=== PATIENT | female | born 1945 | race Caucasian/White ===

== ENCOUNTER → 2019-05-12 | Outpatient (CLI) | payer MEDICARE, BC ==
--- NOTE | 2019-05-13 14:52 | MM ---
Reason for exam: screening (asymptomatic). Last mammogram was performed 3 years and 7 months ago. History: Patient is postmenopausal. Family history of breast cancer in maternal aunt. Cyst aspiration of the left breast. Cyst aspiration of the right breast. Took estrogen for 10 years. Took progesterone for 10 years. Physical Findings: A clinical breast exam by your physician is recommended on an annual basis and results should be correlated with mammographic findings. MG 3D Screening Mammo W/Cad Bilateral CC and MLO view(s) were taken. Prior study comparison: October 10, 2015, bilateral MG 3d screening mammo w/cad. May 16, 2014, bilateral MG screening mammo w CAD. The breast tissue is extremely dense which could obscure a lesion on mammography. Stable benign calcifications. There is no discrete abnormality. No significant changes when compared with prior studies. ASSESSMENT: Benign, BI-RAD 2 RECOMMENDATION: Routine screening mammogram of both breasts in 1 year.
== END | disposition home or self-care (01) ==
LOC: RADMAMWWP 10:21
PROVIDERS: ATTEND Family Medicine
DX: Z12.31 Encounter for screening mammogram for malignant neoplasm of breast (principal)
CPT/HCPCS: 77063; 77067

== ENCOUNTER → 2020-06-13 | Outpatient (CLI) | payer MEDICARE, BC ==
--- NOTE | 2020-06-13 15:18 | BD ---
EXAMINATION TYPE: Axial Bone Density DATE OF EXAM: 06/13/2020 COMPARISON: 02.20.2009 CLINICAL HISTORY: 74 YR OLD FEMALE.....ICD-10 CODE: M81.0 KNOWN OSTEOPOROSIS Height: 65 Weight: 152 FRAX RISK QUESTIONS: History of Fracture in Adulthood: YES RISK FACTORS HISTORY OF: HX OF RT ANKLE FX AND FINGERS AND TOES, >50 YRS OLD Family History of Osteoporosis: YES, MOTHER, NO HIP FX Active: YES Postmenopausal woman: YES, AT AGE 50 Take estrogen and/or progesterone medications: YES, FOR ABOUT 15 YRS Hyperparathyroidism: NO Adrenal Insufficiency: NO MEDICATIONS: Prednisone or other steroids: YES, FOR ASTHMA, ADVAIR AND SINGULAIR, PRO AIR, FOR MANY YRS Osteoporosis Medications: YES, IN THE PAST, FOSAMAX, ON IT FOR VERY LONG TIME Additional Medications: BP MEDS, REFLUX MEDS, STATIN FOR CHOLESTEROL, VIT D AND CALCIUM Additional History: HYPERTENSION, REFLUX, CHOLESTEROL, EXAM MEASUREMENTS: Bone mineral densitometry was performed using the [employer] System. Bone mineral density as measured about the Lumbar spine is: ----- L1-L4(G/cm2): 1.015 T Score Values are as follows: ----- L1: -1.8 ----- L2: -2.2 ----- L3: -1.4 ----- L4: -0.3 ----- L1-L4: -1.4 Bone mineral density has: Increased 0.2% SINCE STUDY OF 02.20.2009 Bone mineral density about the R hip (g/cm2): 0.749 Bone mineral density about the L hip (g/cm2): 0.861 T Score values are as follows: -----R Neck: -1.6 -----L Neck: -1.8 -----R Total: -2.1 -----L Total: -1.2 Bone mineral density has: Increased 4.5% SINCE STUDYOF 02.20.2009 FRAX%s: THERE IS A 27.6 % CHANCE FOR A MAJOR OSTEOPOROTIC FX AND A 6.3% FOR HIP......PROBABILITY FO R FX IN 10 YRS TIME IMPRESSION: Osteopenia (T Score between -2.5 and -1). There is slightly increased risk of fracture and the patient may be considered for treatment. Re-Screen 2-5 years. NOTE: T-SCORE=SD OF THE YOUNG ADULT MEAN.
== END | disposition home or self-care (01) ==
LOC: RADBDWWP 10:30
PROVIDERS: ATTEND Family Medicine
DX: M85.80 Other specified disorders of bone density and structure, unspecified site (principal)
CPT/HCPCS: 77080

== ENCOUNTER 2020-08-07 19:01 | Inpatient (IN) | payer MEDICARE, BC ==
[2020-08-07] MEDS ORDERED: SODIUM CHLORIDE 0.9% 500 ML 500 ML IV ONE (20:33)
[2020-08-07] MEDS ORDERED: DILTIAZEM DRIP BOLUS FROM BAG 1 MG SOLN IV ONE (20:34)
[2020-08-07] MEDS ORDERED: DILTIAZEM 125 MG in SODIUM CHLORIDE 0.9% 100 ML IV SCH (20:45)
--- NOTE | 2020-08-07 20:45 | ED ---
Dizziness HPI - General Chief Complaint: Dizziness Stated Complaint: High BP Time Seen by Provider: 08/07/20 20:20 Source: patient, RN notes reviewed Mode of arrival: wheelchair Limitations: no limitations - History of Present Illness Initial Comments: 74-year-old well-appearing white female patient presents with her sister complaining of sudden onset last night of "not feeling well". Patient states today she felt dizzy, clammy, with some abdominal cramping, but denies nausea vomiting diarrhea cough or fever. Patient states had first Covid vaccine 2 weeks ago Moderna. 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 Patient has a history of A. fib but is not on medication for patient states she has hyper pressure and is taking medication for that along with high cholesterol. She had a heart catheterization in April 2019 and again in 2019 with angioplasty. Patient states takes baby aspirin a day but is not taking any antiarrhythmic or blood thinner. MD Complaint: dizziness -: days(s) (1) Timing: sudden onset, intermittent Description: other ("didn't feel well" dizzy, abdominal cramping) History of Same: No History of Trauma: No Severity: moderate Improves With: rest Worsens With: nothing Associated Symptoms: other (abd cramping) - Related Data Home Medications Medication Instructions Recorded Confirmed Aspirin [Adult Low Dose Aspirin EC] 81 mg PO HS 08/07/20 08/07/20 Calcium/B3 (Unknown Strength) 1 tab PO HS 08/07/20 08/07/20 Glucosamine Sulfate 500 mg PO DAILY 08/07/20 08/07/20 Montelukast Sodium [Singulair] 10 mg PO HS 08/07/20 08/07/20 Multivitamins, Thera [Multivitamin 1 tab PO DAILY 08/07/20 08/07/20 (formulary)] Omeprazole [PriLOSEC] 10 mg PO DAILY 08/07/20 08/07/20 Rosuvastatin Calcium [Crestor] 20 mg PO HS 08/07/20 08/07/20 Valsartan/Hydrochlorothiazide 1 tab PO HS 08/07/20 08/07/20 [Valsartan-Hctz 160-12.5 mg Tab] Allergies Allergy/AdvReac Type Severity Reaction Status Date / Time No Known Allergies Allergy Verified 08/07/20 21:55 Review of Systems ROS Statement: Those systems with pertinent positive or pertinent negative responses have been documented in the HPI. ROS Other: All systems not noted in ROS Statement are negative. Past Medical History Past Medical History: Atrial Fibrillation, Hyperlipidemia, Hypertension History of Any Multi-Drug Resistant Organisms: None Reported Past Surgical History: Heart Catheterization Additional Past Surgical History / Comment(s): carpal tunnel Past Psychological History: Anxiety Smoking Status: Former smoker Past Alcohol Use History: Occasional Past Drug Use History: None Reported General Exam - General Exam Comments Initial Comments: Alert and active female, blood pressure 107/64 with heart rate of 103 irregular A. fib, oxygen saturation 97% room air, respiratory rate of 20. Patient skin warm and dry supple no lymphadenopathy lungs clear to auscultation heart rate irregular radial and pedal pulses are present, abdomen soft and nontender, no spinal pain. Moves all extremities with good strength. Patient alert and oriented 4. Limitations: no limitations General appearance: alert, in no apparent distress Head exam: Present: atraumatic, normocephalic, normal inspection Eye exam: Present: normal appearance, PERRL, EOMI. Absent: scleral icterus, conjunctival injection, periorbital swelling ENT exam: Present: normal exam, mucous membranes moist Neck exam: Present: normal inspection. Absent: tenderness, meningismus, lymphadenopathy Respiratory exam: Present: normal lung sounds bilaterally. Absent: respiratory distress, wheezes, rales, rhonchi, stridor Cardiovascular Exam: Present: tachycardia (a fib with rvr 150-103), irregular rhythm. Absent: normal rhythm, JVD GI/Abdominal exam: Present: soft, normal bowel sounds. Absent: distended, tenderness Back exam: Present: normal inspection. Absent: tenderness, vertebral tenderness Psychiatric exam: Present: normal affect, normal mood Skin exam: Present: warm, dry, intact, normal color. Absent: rash Course Vital Signs 08/07/20 08/07/20 08/07/20 19:46 21:01 21:58 Temperature 97.9 F Pulse Rate 103 H 124 H 114 H Respiratory 20 18 18 Rate Blood Pressure 107/64 141/123 107/84 O2 Sat by Pulse 97 100 99 Oximetry Medical Decision Making - Medical Decision Making Case discussed with Dr. Choudhury, patient to be admitted to Dr. Dhaliwal with Dr. Bruno on consult for atrial fibrillation with rapid ventricular rate. Patient on Cardizem drip. Patient denies any chest pain, dizziness or shortness of breath at this time. Atrial fibrillation with Heart rate 109. - Lab Data Result diagrams: 08/07/20 21:01 08/07/20 21: Lab Results 08/07/20 08/07/20 08/07/20 Range/Units 21: 21: 21:01 WBC 7.0 (3.8-10.6) k/uL RBC 4.57 (3.80-5.40) m/uL Hgb 14.6 (11.4-16.0) gm/dL Hct 43.7 (34.0-46.0) % MCV 95.8 (80.0-100.0) fL MCH 31.9 (25.0-35.0) pg MCHC 33.3 (31.0-37.0) g/dL RDW 12.6 (11.5-15.5) % Plt Count 311 (150-450) k/uL MPV 6.9 Neutrophils % 51 % Lymphocytes % 34 % Monocytes % 9 % Eosinophils % 3 % Basophils % 1 % Neutrophils # 3.6 (1.3-7.7) k/uL Lymphocytes # 2.4 (1.0-4.8) k/uL Monocytes # 0.7 (0-1.0) k/uL Eosinophils # 0.2 (0-0.7) k/uL Basophils # 0.1 (0-0.2) k/uL PT 10.3 (9.0-12.0) sec INR 1.0 (<1.2) APTT 24.9 (22.0-30.0) sec Sodium 132 L (137-145) mmol/L Potassium 4.5 (3.5-5.1) mmol/L Chloride 98 (98-107) mmol/L Carbon Dioxide 26 (22-30) mmol/L Anion Gap 8 mmol/L BUN 18 H (7-17) mg/dL Creatinine 0.97 (0.52-1.04) mg/dL Est GFR (CKD-EPI)AfAm 68 (>60 ml/min/1.73 sqM) Est GFR (CKD-EPI)NonAf 59 (>60 ml/min/1.73 sqM) Glucose 107 H (74-99) mg/dL Calcium 9.7 (8.4-10.2) mg/dL Magnesium 2.1 (1.6-2.3) mg/dL Total Bilirubin 0.5 (0.2-1.3) mg/dL AST 38 H (14-36) U/L ALT 30 (4-34) U/L Alkaline Phosphatase 77 (38-126) U/L Troponin I (0.000-0.034) ng/mL Total Protein 7.1 (6.3-8.2) g/dL Albumin 4.6 (3.5-5.0) g/dL Coronavirus (PCR) (Not Detectd) 08/07/20 08/07/20 Range/Units 21:01 21:04 WBC (3.8-10.6) k/uL RBC (3.80-5.40) m/uL Hgb (11.4-16.0) gm/dL Hct (34.0-46.0) % MCV (80.0-100.0) fL MCH (25.0-35.0) pg MCHC (31.0-37.0) g/dL RDW (11.5-15.5) % Plt Count (150-450) k/uL MPV Neutrophils % % Lymphocytes % % Monocytes % % Eosinophils % % Basophils % % Neutrophils # (1.3-7.7) k/uL Lymphocytes # (1.0-4.8) k/uL Monocytes # (0-1.0) k/uL Eosinophils # (0-0.7) k/uL Basophils # (0-0.2) k/uL PT (9.0-12.0) sec INR (<1.2) APTT (22.0-30.0) sec Sodium (137-145) mmol/L Potassium (3.5-5.1) mmol/L Chloride (98-107) mmol/L Carbon Dioxide (22-30) mmol/L Anion Gap mmol/L BUN (7-17) mg/dL Creatinine (0.52-1.04) mg/dL Est GFR (CKD-EPI)AfAm (>60 ml/min/1.73 sqM) Est GFR (CKD-EPI)NonAf (>60 ml/min/1.73 sqM) Glucose (74-99) mg/dL Calcium (8.4-10.2) mg/dL Magnesium (1.6-2.3) mg/dL Total Bilirubin (0.2-1.3) mg/dL AST (14-36) U/L ALT (4-34) U/L Alkaline Phosphatase (38-126) U/L Troponin I <0.012 (0.000-0.034) ng/mL Total Protein (6.3-8.2) g/dL Albumin (3.5-5.0) g/dL Coronavirus (PCR) Not Detected (Not Detectd) - EKG Data -: EKG Interpreted by Me (with Dr Choudhury) EKG Comments: EKG at 1956 shows A. fib with RVR with a ventricular rate of 139, QRS of 0.90 with QTc of 462 ms Interpretation: other (afib with RVR 139) Disposition Clinical Impression: Atrial fibrillation with rapid ventricular response Disposition: ADMITTED IP TO THIS HOSP Condition: Good Is patient prescribed a controlled substance at d/c from ED?: No Referrals: Mayito Abrams DO [Primary Care Provider] - 1-2 days Decision Date: 08/07/20 Decision Time: 22:28
[2020-08-07 21:03] VITALS: RESP 18
[2020-08-07 21:14] LABS: Basophils # (A) 0.1 k/uL (0-0.2); Basophils % (A) 1 %; Eosinophils # (A) 0.2 k/uL (0-0.7); Eosinophils % (A) 3 %; HCT 43.7 % (34.0-46.0); HGB 14.6 gm/dL (11.4-16.0); Lymphocytes # (A) 2.4 k/uL (1.0-4.8); Lymphocytes % (A) 34 %; MCH 31.9 pg (25.0-35.0); MCHC 33.3 g/dL (31.0-37.0); MCV 95.8 fL (80.0-100.0); Mean Platelet Volume 6.9; Monocytes # (A) 0.7 k/uL (0-1.0); Monocytes % (A) 9 %; Neutrophils # (A) 3.6 k/uL (1.3-7.7); Neutrophils % (A) 51 %; Platelet Count 311 k/uL (150-450); RBC 4.57 m/uL (3.80-5.40); RDW 12.6 % (11.5-15.5)
[2020-08-07 21:24] LABS: Albumin 4.6 g/dL (3.5-5.0); Calcium 9.7 mg/dL (8.4-10.2); Magnesium 2.1 mg/dL (1.6-2.3); Potassium 4.5 mmol/L (3.5-5.1); Total Bilirubin 0.5 mg/dL (0.2-1.3); Total Protein 7.1 g/dL (6.3-8.2)
[2020-08-07 21:26] LABS: Partial Thromboplastin Time 24.9 sec (22.0-30.0); Prothrombin Time 10.3 sec (9.0-12.0)
--- NOTE | 2020-08-07 21:45 | XR ---
EXAMINATION TYPE: XR chest 2V DATE OF EXAM: 08/07/2020 COMPARISON: NONE HISTORY: Hypotension TECHNIQUE: 2 views FINDINGS: Heart and mediastinum are normal. Lungs are clear. Diaphragm is normal. Bony thorax appears normal. IMPRESSION: Normal chest.
[2020-08-07] MEDS ORDERED: ACETAMINOPHEN TAB 325 MG TAB PO PRN (22:19)
[2020-08-07] MEDS ORDERED: NALOXONE 0.4 MG/ML 1 ML VIAL IV PRN (22:19)
[2020-08-07] MEDS ORDERED: HEPARIN SODIUM,PORCINE 5,000 UNIT/ML 1 ML VIAL IV PRN (22:30)
[2020-08-07] MEDS ORDERED: HEPARIN SODIUM,PORCINE 5,000 UNIT/ML 1 ML VIAL IV ONE (22:30)
[2020-08-07] MEDS ORDERED: HEPARIN SOD,PORK IN 0.45% NACL 25,000 UNIT in 0.45% NACL 1 250ML.BAG IV SCH (22:30)
[2020-08-08 05:39] LABS: Basophils % (A) 1 %; Eosinophils # (A) 0.2 k/uL (0-0.7); Eosinophils % (A) 3 %; HCT 39.6 % (34.0-46.0); HGB 13.3 gm/dL (11.4-16.0); Lymphocytes % (A) 51 %; MCH 32.3 pg (25.0-35.0); MCHC 33.5 g/dL (31.0-37.0); MCV 96.3 fL (80.0-100.0); Mean Platelet Volume 6.9; Monocytes # (A) 0.5 k/uL (0-1.0); Monocytes % (A) 8 %; Neutrophils # (A) 2.1 k/uL (1.3-7.7); Neutrophils % (A) 35 %; Platelet Count 297 k/uL (150-450); RBC 4.12 m/uL (3.80-5.40); RDW 12.6 % (11.5-15.5); WBC 5.9 k/uL (3.8-10.6)
[2020-08-08] MEDS ORDERED: METOPROLOL TARTRATE 25 MG TAB PO SCH (09:45)
[2020-08-08 09:47] VITALS: TEMP 98.6
[2020-08-08 11:38] VITALS: BP 99/55; PULSE 58
[2020-08-08] MEDS ORDERED: APIXABAN 5 MG TAB PO SCH (12:00)
--- NOTE | 2020-08-08 14:27 | P.HPIM ---
History of Present Illness H&P Date: 08/08/20 HISTORY AND PHYSICAL AND DISCHARGE SUMMARY: HISTORY OF PRESENT ILLNESS This is a 74-year-old female patient of Dr. Abrams and Dr. Washington her fisher eel spear with past medical history of hypertension, hyperlipidemia, gastroesophageal reflux disease, peripheral vascular disease with previous angioplasty. Patient states that she developed a choking sensation was clammy and dizzy and nauseated. Patient thought she was going to pass out. She denies any shortness of breath. No chest pain. She called her sister and she was brought into [facility] emergency center for evaluation. Patient states that she has had atrial fibrillation in the past was not on any anticoagulation. She states she had a stress test done 6 months ago which was okay. Patient was found to be afebrile, heart rate 124, blood pressure 107/64, pulse ox 97%. CBC was unremarkable. Sodium 132, potassium 4.5, chloride 98, CO2 26, BUN 18 and creatinine 0.97. Blood sugar 107. AST 38. Coronavirus PCR not detected. Troponin is negative. EKG is atrial fibrillation with RVR at 139 bpm. Patient was admitted and seen by fisher eel spear. Patient was started on eliquis and metoprolol. Patient was cleared for discharge home. Patient will follow-up with her primary fisher eel spear. REVIEW OF SYSTEMS Constitutional: No fever, no chills, no night sweats. No weight change. No weakness, fatigue or lethargy. No daytime sleepiness. EENT: No headache. No blurred vision or double vision, no loss of vision. No loss of Hearing, no ringing in the ears, no dizziness. No nasal drainage or congestion. No epistaxis. No sore throat. Lungs: No shortness of breath, cough, no sputum production. No wheezing. Cardiovascular: No chest pain, no lower extremity edema. No palpitations. No paroxysmal nocturnal dyspnea. No orthopnea. Reports dizziness. No syncopal episodes. Abdominal: No abdominal pain. Reports nausea, no vomiting. No diarrhea. No constipation. No bloody or tarry stools.. No loss of appetite. Genitourinary: No dysuria, increased frequency, urgency. No urinary retention. Musculoskeletal: No myalgias. No muscle weakness, no gait dysfunction, no frequent falls. No back pain. No neck pain. Integumentary: No wounds, no lesions. No rash or pruritus. No unusual bruising. No change in hair or nails. Neurologic: No aphasia. No facial droop. No change in mentation. No head injury. No headache. No paralysis. No paresthesia. Psychiatric: No depression. No anxiety. No mood swings. Endocrine: No abnormal blood sugars. No weight change. No excessive sweating or thirst. No cold intolerance. SOCIAL HISTORY Patient is a lifelong nonsmoker. She drink alcohol occasionally. She denies any marijuana or illicit drug use. She is retired as an commercial management accountant and lives at home with her . FAMILY HISTORY Mother at age 92 from old age. Father at age 60 from lymphoma. Patient is a total of 8 siblings and one has from lung cancer and one from depression. Patient is 3 children with no major medical problems. PHYSICAL EXAMINATION Gen: This is a 74-year-old female. Patient is resting on stretcher in the ER she would appears to be comfortable. No acute distress noted. HEENT: Head is atraumatic, normocephalic. Pupils equal, round. Sclerae is anicteric. NECK: Supple. No JVD. No lymphadenopathy. No thyromegaly. LUNGS: Clear to auscultation. No wheezes or rhonchi. No intercostal retractions. HEART: Irregular rate and rhythm. No murmur. ABDOMEN: Soft. Bowel sounds are present. No masses. No tenderness. EXTREMITIES: No pedal edema. No calf tenderness. Dorsalis pedis palpable bilaterally. NEUROLOGICAL: Patient is awake, alert and oriented x3. Cranial nerves 2 through 12 are grossly intact. ASSESSMENT AND PLAN 1. A. fib with RVR, paroxysmal atrial fibrillation. Cardiology consult appreciated. Patient started on eliquis 5 mg twice daily and Lopressor 25 mg twice daily. 2. Hypertension. 3. Hyperlipidemia. 4. Mild intermittent asthma stable. 5. Gastroesophageal reflux disease. 6. Peripheral vascular disease. Patient will be admitted to the hospital for a 1 night stay. DISCHARGE PLAN Home. Discharge Medication List Aspirin [Adult Low Dose Aspirin EC] 81 mg PO HS 08/07/20 [History] Calcium/B3 (Unknown Strength) 1 tab PO HS 08/07/20 [History] Glucosamine Sulfate 500 mg PO DAILY 08/07/20 [History] Montelukast Sodium [Singulair] 10 mg PO HS 08/07/20 [History] Multivitamins, Thera [Multivitamin (formulary)] 1 tab PO DAILY 08/07/20 [History] Omeprazole [PriLOSEC] 10 mg PO DAILY 08/07/20 [History] Rosuvastatin Calcium [Crestor] 20 mg PO HS 08/07/20 [History] Valsartan/Hydrochlorothiazide [Valsartan-Hctz 160-12.5 mg Tab] 1 tab PO HS 08/07/20 [History] Apixaban [Eliquis] 5 mg PO BID #60 tab 08/08/20 [Rx] Metoprolol Tartrate [Lopressor] 25 mg PO BID #60 tab 08/08/20 [Rx] Impression and plan of care have been directed as dictated by the signing physician. Olga Guzman nurse practitioner acting as scribe for signing physician. Past Medical History Past Medical History: Atrial Fibrillation, Hyperlipidemia, Hypertension History of Any Multi-Drug Resistant Organisms: None Reported Past Surgical History: Heart Catheterization Additional Past Surgical History / Comment(s): heart cath 05/13 carpal tunnel Past Anesthesia/Blood Transfusion Reactions: No Reported Reaction Past Psychological History: Anxiety Smoking Status: Former smoker Past Alcohol Use History: Occasional Past Drug Use History: None Reported - Past Family History Mother Family Medical History: AFIB Medications and Allergies Home Medications Medication Instructions Recorded Confirmed Type Aspirin [Adult Low Dose Aspirin EC] 81 mg PO HS 08/07/20 08/07/20 History Calcium/B3 (Unknown Strength) 1 tab PO HS 08/07/20 08/07/20 History Glucosamine Sulfate 500 mg PO DAILY 08/07/20 08/07/20 History Montelukast Sodium [Singulair] 10 mg PO HS 08/07/20 08/07/20 History Multivitamins, Thera [Multivitamin 1 tab PO DAILY 08/07/20 08/07/20 History (formulary)] Omeprazole [PriLOSEC] 10 mg PO DAILY 08/07/20 08/07/20 History Rosuvastatin Calcium [Crestor] 20 mg PO HS 08/07/20 08/07/20 History Valsartan/Hydrochlorothiazide 1 tab PO HS 08/07/20 08/07/20 History [Valsartan-Hctz 160-12.5 mg Tab] Apixaban [Eliquis] 5 mg PO BID #60 tab 08/08/20 Rx Metoprolol Tartrate [Lopressor] 25 mg PO BID #60 tab 08/08/20 Rx Allergies Allergy/AdvReac Type Severity Reaction Status Date / Time No Known Allergies Allergy Verified 08/07/20 21:55 Physical Exam Vitals: Vital Signs Temp Pulse Pulse Resp BP BP Pulse Ox 08/08/20 09:30 98.6 F 62 18 126/68 99 08/08/20 04:00 96 18 111/66 99 08/07/20 23:21 97.5 F L 120 H 18 106/96 98 08/07/20 22:30 140 H 18 100 08/07/20 21:58 114 H 18 107/84 99 08/07/20 21:01 124 H 18 141/123 100 08/07/20 19:46 97.9 F 103 H 20 107/64 97 Intake and Output 08/07/20 08/08/20 08/08/20 22:59 06:59 14:59 Intake Total 7.75 44.99 Balance 7.75 44.99 Intake: Intake, IV Titration 7.75 44.99 Amount Diltiazem 125 mg In 7.75 Sodium Chloride 0.9% 100 ml @ 5 MG/HR 5 mls/hr IV .Q24H [facility] Rx#:[id number] Heparin Sod,Pork in 0.45% 44.99 NaCl 25,000 unit In 0.45 % NaCl 1 250ml.bag @ 12 UNITS/KG/HR 7.893 mls/hr IV .Q24H [facility] Rx#: [id number] Other: # Voids 2 Weight 65.771 kg 65.771 kg Results CBC & Chem 7: 08/08/20 05:20 08/07/20 21:01 Labs: Abnormal Lab Results - Last 24 Hours (Table) 08/07/20 08/08/20 Range/Units 21:01 05:20 APTT 66.8 H (22.0-30.0) sec Sodium 132 L (137-145) mmol/L BUN 18 H (7-17) mg/dL Glucose 107 H (74-99) mg/dL AST 38 H (14-36) U/L Thrombosis Risk Factor Assmnt - Choose All That Apply Any of the Below Risk Factors Present?: No Each Risk Factor Represents 2 Points: Age 61-74 years Each Risk Factor Represents 3 Points: History of DVT/PE Other congenital or acquired thrombophilia - If yes, enter type in comment: No Thrombosis Risk Factor Assessment Total Risk Factor Score: 5 Thrombosis Risk Factor Assessment Level: High Risk
--- NOTE | 2020-08-08 14:47 | P.CRDCN ---
History of Present Illness Consult date: 08/08/20 History of present illness: HISTORY OF PRESENT ILLNESS: This is a 74-year-old female with a past medical history significant for hypertension, hyperlipidemia, peripheral vascular disease, and atrial fibrillation. Patient follows with Dr. Ledesma]. We have been asked to see the patient in consultation for atrial fibrillation with RVR. Patient examined at the bedside in the extended care unit with Dr. Vieira. Patient initially presented to the hospital with a chief complaint of dizziness, lightheadedness, and nausea. Patient denies any of these symptoms at the time of examination. Initial EKG when patient presented to the hospital with A. fib with RVR. Patient was started on a Cardizem drip. She has since converted to sinus mechanism. IV Cardizem was discontinued and patient was started on a beta pamela. She denies chest pain or pressure. Denies shortness of breath. Patient reports a history of atrial fibrillation but was not on anticoagulation. She is unsure of the reason why. EKG reveals atrial fibrillation with RVR. Repeat EKG revealed sinus mechanism. Chest xray negative for acute process. Laboratory data: WBC 5.9. Hemoglobin 13.3. Platelet count 297. Sodium 132. Potassium 4.5. BUN 18. Creatinine 0.97. Magnesium 2.1. Current home cardiac medications include aspirin 81 mg daily, Crestor 20 mg daily, and valsartan-HCTZ 76938.5 mg daily REVIEW OF SYSTEMS: At the time of my exam: CONSTITUTIONAL: Denies fever or chills. HEENT: Denies blurred vision, vision changes, or eye pain. Denies hemoptysis CARDIOVASCULAR: Denies chest pain. Denies orthopnea. Denies PND. Denies pal pitations RESPIRATORY: Denies shortness of breath. GASTROINTESTINAL: Denies abdominal pain. Denies nausea or vomiting. HEMATOLOGIC: Denies bleeding disorders. GENITOURINARY: Denies any blood in urine. SKIN: Denies pruitis. Denies rash. PHYSICAL EXAM: VITAL SIGNS: Reviewed. GENERAL: Well-developed in no acute distress. HEENT: Head is normocephalic. Pupils are equal, round. Sclerae anicteric. Mucous membranes of the mouth are moist. Neck supple. No JVD or thyromegaly LUNGS: Respirations even and unlabored. Lungs essentially clear to auscultation bilaterally. HEART: Regular rate and rhythm. S1 and S2 heard. ABDOMEN: Soft. Nondistended. Nontender. EXTREMITIES: Normal range of motion. No clubbing or cyanosis. Peripheral pulses intact. No lower extremity edema NEUROLOGIC: Awake and alert. Oriented x 3. ASSESSMENT: Dizziness, resolved Paroxysmal atrial fibrillation with RVR, since converted to sinus mechanism Hypertension Hyperlipidemia Peripheral vascular disease Anxiety Former nicotine dependence PLAN: IV Cardizem has been discontinued Patient has been started on metoprolol 25 mg twice a day Continue additional home cardiac medications Discontinue aspirin Begin Eliquis 5 mg twice a day. Discontinue IV heparin Patient is stable for discharge home today from a cardiac perspective. She is to follow up outpatient with her bus greaser. Nurse practitioner note has been reviewed by physician. Signing provider agrees with the documented findings, assessment, and plan of care. Past Medical History Past Medical History: Atrial Fibrillation, Hyperlipidemia, Hypertension History of Any Multi-Drug Resistant Organisms: None Reported Past Surgical History: Heart Catheterization Additional Past Surgical History / Comment(s): heart cath 05/13 carpal tunnel Past Anesthesia/Blood Transfusion Reactions: No Reported Reaction Past Psychological History: Anxiety Smoking Status: Former smoker Past Alcohol Use History: Occasional Past Drug Use History: None Reported - Past Family History Mother Family Medical History: AFIB Medications and Allergies Home Medications Medication Instructions Recorded Confirmed Type Aspirin [Adult Low Dose Aspirin EC] 81 mg PO HS 08/07/20 08/07/20 History Calcium/B3 (Unknown Strength) 1 tab PO HS 08/07/20 08/07/20 History Glucosamine Sulfate 500 mg PO DAILY 08/07/20 08/07/20 History Montelukast Sodium [Singulair] 10 mg PO HS 08/07/20 08/07/20 History Multivitamins, Thera [Multivitamin 1 tab PO DAILY 08/07/20 08/07/20 History (formulary)] Omeprazole [PriLOSEC] 10 mg PO DAILY 08/07/20 08/07/20 History Rosuvastatin Calcium [Crestor] 20 mg PO HS 08/07/20 08/07/20 History Valsartan/Hydrochlorothiazide 1 tab PO HS 08/07/20 08/07/20 History [Valsartan-Hctz 160-12.5 mg Tab] Apixaban [Eliquis] 5 mg PO BID #60 tab 03/17/21 Rx Metoprolol Tartrate [Lopressor] 25 mg PO BID #60 tab 08/08/20 Rx Allergies Allergy/AdvReac Type Severity Reaction Status Date / Time No Known Allergies Allergy Verified 08/07/20 21:55 Physical Exam Vitals: Vital Signs Temp Pulse Pulse Resp BP BP Pulse Ox 08/08/20 11:25 58 L 18 99/55 98 08/08/20 09:30 98.6 F 62 18 126/68 99 08/08/20 04:00 96 18 111/66 99 08/07/20 23:21 97.5 F L 120 H 18 106/96 98 08/07/20 22:30 140 H 18 100 08/07/20 21:58 114 H 18 107/84 99 08/07/20 21:01 124 H 18 141/123 100 08/07/20 19:46 97.9 F 103 H 20 107/64 97 Intake and Output 08/07/20 08/08/20 08/08/20 22:59 06:59 14:59 Intake Total 7.75 44.99 Balance 7.75 44.99 Intake: Intake, IV Titration 7.75 44.99 Amount Diltiazem 125 mg In 7.75 Sodium Chloride 0.9% 100 ml @ 5 MG/HR 5 mls/hr IV .Q24H [facility] Rx#:[id number] Heparin Sod,Pork in 0.45% 44.99 NaCl 25,000 unit In 0.45 % NaCl 1 250ml.bag @ 12 UNITS/KG/HR 7.893 mls/hr IV .Q24H [facility] Rx#: [id number] Other: # Voids 2 Weight 65.771 kg 65.771 kg Results 08/08/20 05:20 08/07/20 21:01 Cardiac Enzymes 08/07/20 08/07/20 Range/Units 21:01 21:01 AST 38 H (14-36) U/L Troponin I <0.012 (0.000-0.034) ng/mL Coagulation 08/07/20 08/08/20 08/08/20 Range/Units 21:01 05:20 11:27 PT 10.3 (9.0-12.0) sec APTT 24.9 66.8 H 32.4 H (22.0-30.0) sec CBC 08/07/20 08/08/20 Range/Units 21:01 05:20 WBC 7.0 5.9 (3.8-10.6) k/uL RBC 4.57 4.12 (3.80-5.40) m/uL Hgb 14.6 13.3 (11.4-16.0) gm/dL Hct 43.7 39.6 (34.0-46.0) % Plt Count 311 297 (150-450) k/uL Comprehensive Metabolic Panel 08/07/20 Range/Units 21:01 Sodium 132 L (137-145) mmol/L Potassium 4.5 (3.5-5.1) mmol/L Chloride 98 (98-107) mmol/L Carbon Dioxide 26 (22-30) mmol/L BUN 18 H (7-17) mg/dL Creatinine 0.97 (0.52-1.04) mg/dL Glucose 107 H (74-99) mg/dL Calcium 9.7 (8.4-10.2) mg/dL AST 38 H (14-36) U/L ALT 30 (4-34) U/L Alkaline Phosphatase 77 (38-126) U/L Total Protein 7.1 (6.3-8.2) g/dL Albumin 4.6 (3.5-5.0) g/dL Intake and Output 08/07/20 08/08/20 08/08/20 22:59 06:59 14:59 Intake Total 7.75 44.99 Balance 7.75 44.99 Intake: Intake, IV Titration 7.75 44.99 Amount Diltiazem 125 mg In 7.75 Sodium Chloride 0.9% 100 ml @ 5 MG/HR 5 mls/hr IV .Q24H [facility] Rx#:[id number] Heparin Sod,Pork in 0.45% 44.99 NaCl 25,000 unit In 0.45 % NaCl 1 250ml.bag @ 12 UNITS/KG/HR 7.893 mls/hr IV .Q24H [facility] Rx#: [id number] Other: # Voids 2 Weight 65.771 kg 65.771 kg 08/08/20 05:20 08/07/20 21:01
[2020-08-08] MEDS ORDERED: VALSARTAN 160 MG TAB PO SCH (21:00)
[2020-08-08] MEDS ORDERED: ASPIRIN 81 MG PO SCH (21:00)
[2020-08-08] MEDS ORDERED: ATORVASTATIN 40 MG TAB PO SCH (21:00)
[2020-08-08] MEDS ORDERED: MONTELUKAST 10 MG TAB PO SCH (21:00)
[2020-08-08] MEDS ORDERED: hydroCHLOROthiazide 12.5 MG CAP PO SCH (21:00)
[2020-08-09] MEDS ORDERED: PANTOPRAZOLE 40 MG TABLET PO SCH (09:00)
== END 2020-08-08 14:00 | disposition home or self-care (01) | DRG 310 ==
LOC: EC 19:01 → 3SCARD 22:26
PROVIDERS: ADMIT Internal Medicine Geriatric Medicine; ATTEND Internal Medicine Geriatric Medicine
DX: I48.0 Paroxysmal atrial fibrillation (principal); E78.5 Hyperlipidemia, unspecified; F41.9 Anxiety disorder, unspecified; I10 Essential (primary) hypertension; I73.9 Peripheral vascular disease, unspecified; J45.20 Mild intermittent asthma, uncomplicated; K21.9 Gastro-esophageal reflux disease without esophagitis; Z20.822 Contact with and (suspected) exposure to COVID-19; Z79.01 Long term (current) use of anticoagulants; Z79.82 Long term (current) use of aspirin; Z79.899 Other long term (current) drug therapy; Z80.1 Family history of malignant neoplasm of trachea, bronchus and lung; Z80.7 Family history of other malignant neoplasms of lymphoid, hematopoietic and related tissues; Z81.8 Family history of other mental and behavioral disorders; Z87.891 Personal history of nicotine dependence
CPT/HCPCS: 36415; 71046; 80053; 83735; 84484; 85025; 85610; 85730; 87635; 93005; 96361; 96365; 96366; 96368; 96376; 99285

== ENCOUNTER → 2020-08-30 | Outpatient (CLI) | payer MEDICARE, BC ==
--- NOTE | 2020-08-30 10:30 | US ---
EXAMINATION TYPE: US carotid duplex BILAT DATE OF EXAM: 08/30/2020 COMPARISON: NONE CLINICAL HISTORY: I48.91 A-fib. dizziness EXAM MEASUREMENTS: RIGHT: Peak Systolic Velocity (PSV) cm/sec ----- Right CCA: 60.3 ----- Right ICA: 141 ----- Right ECA: 96.1 ICA/CCA ratio: 2.3 RIGHT: End Diastole cm/sec ----- Right CCA: 13.8 ----- Right ICA: 16.8 ----- Right ECA: 7.8 LEFT: Peak Systolic Velocity (PSV) cm/sec ----- Left CCA: 68.9 ----- Left ICA: 141 ----- Left ECA: 113 ICA/CCA ratio: 2.1 LEFT: End Diastole cm/sec ----- Left CCA: 18.0 ----- Left ICA: 41.0 ----- Left ECA: 11.7 VERTEBRALS (direction of flow): Right Vertebral: Antegrade Left Vertebral: Antegrade Rhythm: Normal Moderate plaque bilateral bifurcations. Increased velocities bilateral ICA's IMPRESSION: 1. Moderate atherosclerotic plaque with findings suggestive of approximately 50-69% stenosis bilatera lly. Correlate with CT as clinically 2. Question right thyroid nodule recommend ultrasound thyroid Criteria for Assigning % of Stenosis / Diameter reduction (Estimation based on the indirect measurements of the internal carotid artery velocities (ICA PSV). 1. Normal (no stenosis)=ICA PSV < 125 cm/s: ratio < 2.0: ICA EDV<40 cm/s. 2. Less than 50% stenosis=ICA PSV < 125 cm/s: ratio < 2.0: ICA EDV<40 cm/s. 3. 50 to 69% stenosis=ICA PSV of 125 to 230 cm/s: ration 2.0 ? 4.0: ICA EDV 40-100 cm/s. 4. Greater than 70% stenosis to near occlusion= ICA PSV > 230 cm/s: ratio > 4.0: ICA EDV > 100 cm/s. 5. Near occlusion= ICA PSV velocities may be low or undetectable: variable ratio and ICA EDV. 6. Total occlusion=unable to detect flow.
--- NOTE | 2020-08-31 10:40 | ECHOF ---
Referral Reason:I48.91 A-fib MEASUREMENTS -------- HEIGHT: 167.6 cm WEIGHT: 68.0 kg BP: 145/67 RVIDd: 2.7 cm (< 3.3) IVSd: 1.2 cm (0.6 - 1.1) LVIDd: 3.7 cm (3.9 - 5.3) LVPWd: 1.2 cm (0.6 - 1.1) IVSs: 1.6 cm LVIDs: 2.6 cm LVPWs: 1.6 cm LA Diam: 3.2 cm (2.7 - 3.8) LAESV Index (A-L): 24.03 ml/m Ao Diam: 3.2 cm (2.0 - 3.7) AV Cusp: 1.9 cm (1.5 - 2.6) MV EXCURSION: 13.666 mm (> 18.000) MV EF SLOPE: 96 mm/s (70 - 150) EPSS: 0.3 cm MV E Jassi: 1.06 m/s MV DecT: 186 ms MV A Jassi: 0.56 m/s MV E/A Ratio: 1.91 RAP: 5.00 mmHg RVSP: 31.76 mmHg FINDINGS -------- Resting bradycardia (HR<60bpm). This was a technically good study. The left ventricular size is normal. There is borderline concentric left ventricular hypertrophy. Overall left ventricular systolic function is normal with, an EF between 60 - 65 %. The right ventricle is normal in size. The left atrium is normal in size. The right atrium is normal in size. Interatrial and interventricular septum intact. The aortic valve is trileaflet, and appears structurally normal. No aortic stenosis or regurgitation. There is trace to mild mitral regurgitation. Mild tricuspid regurgitation present. Right ventricular systolic pressure is normal at < 35 mmHg. The pulmonic valve was not well visualized. The aortic root size is normal. Normal inferior vena cava with normal inspiratory collapse consistent with estimated right atrial pre ssure of 5 mmHg. There is no pericardial effusion. CONCLUSIONS -------- 1. Resting bradycardia (HR<60bpm). 2. The left ventricular size is normal. 3. There is borderline concentric left ventricular hypertrophy. 4. Overall left ventricular systolic function is normal with, an EF between 60 - 65 %. 5. There is trace to mild mitral regurgitation. 6. Mild tricuspid regurgitation present. 7. There is no pericardial effusion. GRAIN ELEVATOR MOTOR STARTER: Gracie Cruz RDCS
== END | disposition home or self-care (01) ==
LOC: RADUSWWP 09:45
PROVIDERS: ATTEND Family Medicine
DX: I08.1 Rheumatic disorders of both mitral and tricuspid valves (principal); R00.1 Bradycardia, unspecified; R42 Dizziness and giddiness
CPT/HCPCS: 93306; 93880

== ENCOUNTER → 2020-10-11 | Outpatient (CLI) | payer MEDICARE, BC ==
--- NOTE | 2020-10-11 15:33 | US ---
EXAMINATION TYPE: US thyroid st tissue head/neck DATE OF EXAM: 10/11/2020 COMPARISON: NONE CLINICAL HISTORY: E04.1 Thyroid nodule. "Choking feeling" per pt. GLAND SIZE: Right Lobe: 4.8 x 1.9 x 1.2 cm Overall Parenchyma: Mildly heterogenous Left Lobe: 4.3 x 1.4 x 1.4 cm Overall Parenchyma: homogeneous Isthmus Thickness: 0.5 cm NODULES RIGHT: # of nodules measured on right: 0 LEFT: # of nodules measured on left: 0 ISTHMUS: # of nodules measured in the isthmus: 0 Bilateral neck scanned, no evidence of lymphadenopathy. IMPRESSION: 1. No evidence of thyroid nodule or cyst. Mild heterogeneity of the right lobe of the thyroid gland.
== END | disposition home or self-care (01) ==
LOC: RADUSWWP 08:50
PROVIDERS: ATTEND Family Medicine
DX: E04.1 Nontoxic single thyroid nodule (principal)
CPT/HCPCS: 76536

== ENCOUNTER 2021-03-04 11:36 | Emergency (ER) | payer MEDICARE, BC ==
--- NOTE | 2021-03-04 13:02 | ED ---
General Adult HPI - General Source: patient, RN notes reviewed Mode of arrival: ambulatory Limitations: no limitations <Ishmael Marquez - Last Filed: 03/04/21 13:00> <Aung Blackburn - Last Filed: 03/04/21 15:12> - General Stated complaint: Dizzy Time Seen by Provider: 03/04/21 12:45 - History of Present Illness Initial comments: 75-year-old female presents emergency Department with chief complaint of feeling lightheaded, dizzy. Patient states she was on her way to [employer] walking in to get her flu shot when she started feeling lightheaded, dizzy, sweaty. Patient states she had these similar symptoms when she was in A. fib. Patient has no pain including denies chest pain or shortness of breath. Patient states she just feels off. Patient denies any headache, blurred vision no focal weakness no significant vomiting diarrhea. No fevers or chills. (Ishmael Marquez) - Related Data Home Medications Medication Instructions Recorded Confirmed Aspirin [Adult Low Dose Aspirin EC] 81 mg PO HS 08/07/20 08/07/20 Calcium/B3 (Unknown Strength) 1 tab PO HS 08/07/20 08/07/20 Glucosamine Sulfate 500 mg PO DAILY 08/07/20 08/07/20 Montelukast Sodium [Singulair] 10 mg PO HS 08/07/20 08/07/20 Multivitamins, Thera [Multivitamin 1 tab PO DAILY 08/07/20 08/07/20 (formulary)] Omeprazole [PriLOSEC] 10 mg PO DAILY 08/07/20 08/07/20 Rosuvastatin Calcium [Crestor] 20 mg PO HS 08/07/20 08/07/20 Valsartan/Hydrochlorothiazide 1 tab PO HS 08/07/20 08/07/20 [Valsartan-Hctz 160-12.5 mg Tab] Previous Rx's Medication Instructions Recorded Apixaban [Eliquis] 5 mg PO BID #60 tab 08/08/20 Metoprolol Tartrate [Lopressor] 25 mg PO BID #60 tab 08/08/20 Allergies Allergy/AdvReac Type Severity Reaction Status Date / Time No Known Allergies Allergy Verified 03/04/21 13:01 Review of Systems ROS Other: All systems not noted in ROS Statement are negative. <Ishmael Marquez - Last Filed: 03/04/21 13:00> ROS Other: All systems not noted in ROS Statement are negative. <Aung Blackburn - Last Filed: 03/04/21 15:12> ROS Statement: Those systems with pertinent positive or pertinent negative responses have been documented in the HPI. Past Medical History Past Medical History: Atrial Fibrillation, Hyperlipidemia, Hypertension History of Any Multi-Drug Resistant Organisms: None Reported Past Surgical History: Heart Catheterization Additional Past Surgical History / Comment(s): heart cath 05/13 carpal tunnel Past Anesthesia/Blood Transfusion Reactions: No Reported Reaction Past Psychological History: Anxiety Smoking Status: Former smoker Past Alcohol Use History: Occasional Past Drug Use History: None Reported - Past Family History Mother Family Medical History: AFIB <Ishmael Marquez - Last Filed: 03/04/21 13:00> General Exam General appearance: alert, in no apparent distress Head exam: Present: atraumatic, normocephalic, normal inspection Eye exam: Present: normal appearance, PERRL, EOMI. Absent: scleral icterus, conjunctival injection, periorbital swelling ENT exam: Present: normal exam, mucous membranes moist Neck exam: Present: normal inspection Respiratory exam: Present: normal lung sounds bilaterally. Absent: respiratory distress, wheezes, rales, rhonchi, stridor Cardiovascular Exam: Present: regular rate, normal rhythm, normal heart sounds. Absent: systolic murmur, diastolic murmur, rubs, gallop, clicks Extremities exam: Present: normal inspection, full ROM, normal capillary refill. Absent: tenderness, pedal edema, joint swelling, calf tenderness Neurological exam: Present: alert, oriented X3 Psychiatric exam: Present: normal affect, normal mood Skin exam: Present: warm, dry, intact, normal color. Absent: rash <Aung Blackburn - Last Filed: 03/04/21 15:12> Course Vital Signs 03/04/21 12:57 Temperature 98.4 F Pulse Rate 64 Respiratory 18 Rate Blood Pressure 193/83 O2 Sat by Pulse 99 Oximetry Medical Decision Making - Lab Data Result diagrams: 03/04/21 13:22 03/04/21 13:22 - EKG Data -: EKG Interpreted by Mn EKG shows normal: sinus rhythm Rate: normal <Aung Blackburn - Last Filed: 03/04/21 15:12> - Medical Decision Making 75-year-old female complaining of nausea and diaphoresis and not feeling left getting her flu vaccine today. Labs, EKG, microstrategy bi developer ordered. Labs unremarkable, troponin negative. EKG within normal limits area Patient most likely had a vasovagal response to an injection. Case discussed with Dr. Garcia, patient can discharge home. (Aung Blackburn) - Lab Data Lab Results 03/04/21 03/04/21 03/04/21 Range/Units 13:22 13:22 13:22 WBC 4.7 (3.8-10.6) k/uL RBC 4.15 (3.80-5.40) m/uL Hgb 13.3 (11.4-16.0) gm/dL Hct 39.8 (34.0-46.0) % MCV 96.1 (80.0-100.0) fL MCH 32.0 (25.0-35.0) pg MCHC 33.3 (31.0-37.0) g/dL RDW 12.4 (11.5-15.5) % Plt Count 302 (150-450) k/uL MPV 7.2 Neutrophils % 44 % Lymphocytes % 42 % Monocytes % 9 % Eosinophils % 1 % Basophils % 0 % Neutrophils # 2.1 (1.3-7.7) k/uL Lymphocytes # 2.0 (1.0-4.8) k/uL Monocytes # 0.4 (0-1.0) k/uL Eosinophils # 0.0 (0-0.7) k/uL Basophils # 0.0 (0-0.2) k/uL Sodium 134 L (137-145) mmol/L Potassium 4.8 (3.5-5.1) mmol/L Chloride 97 L (98-107) mmol/L Carbon Dioxide 27 (22-30) mmol/L Anion Gap 10 mmol/L BUN 14 (7-17) mg/dL Creatinine 0.78 (0.52-1.04) mg/dL Est GFR (CKD-EPI)AfAm 88 (>60 ml/min/1.73 sqM) Est GFR (CKD-EPI)NonAf 76 (>60 ml/min/1.73 sqM) Glucose 91 (74-99) mg/dL Calcium 9.8 (8.4-10.2) mg/dL Magnesium 2.2 (1.6-2.3) mg/dL Total Bilirubin 0.5 (0.2-1.3) mg/dL AST 46 H (14-36) U/L ALT 40 H (4-34) U/L Alkaline Phosphatase 91 (38-126) U/L Troponin I <0.012 (0.000-0.034) ng/mL Total Protein 7.2 (6.3-8.2) g/dL Albumin 4.7 (3.5-5.0) g/dL Urine Color Urine Appearance (Clear) Urine pH (5.0-8.0) Ur Specific [place] (1.001-1.035) Urine Protein (Negative) Urine Glucose (UA) (Negative) Urine Ketones (Negative) Urine Blood (Negative) Urine Nitrite (Negative) Urine Bilirubin (Negative) Urine Urobilinogen (<2.0) mg/dL Ur Leukocyte Esterase (Negative) 03/04/21 Range/Units 13:22 WBC (3.8-10.6) k/uL RBC (3.80-5.40) m/uL Hgb (11.4-16.0) gm/dL Hct (34.0-46.0) % MCV (80.0-100.0) fL MCH (25.0-35.0) pg MCHC (31.0-37.0) g/dL RDW (11.5-15.5) % Plt Count (150-450) k/uL MPV Neutrophils % % Lymphocytes % % Monocytes % % Eosinophils % % Basophils % % Neutrophils # (1.3-7.7) k/uL Lymphocytes # (1.0-4.8) k/uL Monocytes # (0-1.0) k/uL Eosinophils # (0-0.7) k/uL Basophils # (0-0.2) k/uL Sodium (137-145) mmol/L Potassium (3.5-5.1) mmol/L Chloride (98-107) mmol/L Carbon Dioxide (22-30) mmol/L Anion Gap mmol/L BUN (7-17) mg/dL Creatinine (0.52-1.04) mg/dL Est GFR (CKD-EPI)AfAm (>60 ml/min/1.73 sqM) Est GFR (CKD-EPI)NonAf (>60 ml/min/1.73 sqM) Glucose (74-99) mg/dL Calcium (8.4-10.2) mg/dL Magnesium (1.6-2.3) mg/dL Total Bilirubin (0.2-1.3) mg/dL AST (14-36) U/L ALT (4-34) U/L Alkaline Phosphatase (38-126) U/L Troponin I (0.000-0.034) ng/mL Total Protein (6.3-8.2) g/dL Albumin (3.5-5.0) g/dL Urine Color Light Yellow Urine Appearance Clear (Clear) Urine pH 7.0 (5.0-8.0) Ur Specific [place] 1.003 (1.001-1.035) Urine Protein Negative (Negative) Urine Glucose (UA) Negative (Negative) Urine Ketones Negative (Negative) Urine Blood Negative (Negative) Urine Nitrite Negative (Negative) Urine Bilirubin Negative (Negative) Urine Urobilinogen <2.0 (<2.0) mg/dL Ur Leukocyte Esterase Negative (Negative) - EKG Data EKG Comments: Ventricular rate 61 bpm, NH interval 90 ms, QRS duration 92 ms, QTC 422 ms, PRT axes 63/64/60. Sinus rhythm with short NH, otherwise normal ECG. (Aung Blackburn) Disposition <Ishmael Marquez - Last Filed: 03/04/21 13:00> Is patient prescribed a controlled substance at d/c from ED?: No Time of Disposition: 15:12 <Aung Blackburn - Last Filed: 03/04/21 15:12> Clinical Impression: Vasovagal response Disposition: HOME SELF-CARE Condition: Stable Instructions (If sedation given, give patient instructions): Dizziness (ED) Additional Instructions: Please return to the Emergency Department if symptoms worsen or any other concerns. Follow-up primary care 1-2 days. Referrals: Mayito Abrams DO [Primary Care Provider] - 1-2 days
[2021-03-04 14:01] LABS: Basophils % (A) 0 %; Eosinophils % (A) 1 %; HCT 39.8 % (34.0-46.0); HGB 13.3 gm/dL (11.4-16.0); Lymphocytes % (A) 42 %; MCHC 33.3 g/dL (31.0-37.0); MCV 96.1 fL (80.0-100.0); Mean Platelet Volume 7.2; Monocytes # (A) 0.4 k/uL (0-1.0); Monocytes % (A) 9 %; Neutrophils # (A) 2.1 k/uL (1.3-7.7); Neutrophils % (A) 44 %; Platelet Count 302 k/uL (150-450); RBC 4.15 m/uL (3.80-5.40); RDW 12.4 % (11.5-15.5); WBC 4.7 k/uL (3.8-10.6)
[2021-03-04 14:14] LABS: Appearance,Urine Clear (Clear); Bilirubin,Urine Negative (Negative); Blood,Urine Negative (Negative); Color,Urine Light Yellow; Glucose,Urine (UA) Negative (Negative); Ketones,Urine Negative (Negative); Leukocyte Esterase,Urine Negative (Negative); Nitrite,Urine Negative (Negative); Protein,Urine Negative (Negative); Specific Gravity,Urine 1.003 (1.001-1.035); Urobilinogen,Urine <2.0 mg/dL (<2.0)
[2021-03-04 15:05] LABS: Albumin 4.7 g/dL (3.5-5.0); Calcium 9.8 mg/dL (8.4-10.2); Magnesium 2.2 mg/dL (1.6-2.3); Potassium 4.8 mmol/L (3.5-5.1); Total Bilirubin 0.5 mg/dL (0.2-1.3); Total Protein 7.2 g/dL (6.3-8.2)
[2021-03-04 15:42] VITALS: BP 177/78; PULSE 58; RESP 16; TEMP 97.8
== END 2021-03-04 15:41 | disposition home or self-care (01) ==
LOC: EC 11:36
DX: R55 Syncope and collapse (principal); R42 Dizziness and giddiness; I10 Essential (primary) hypertension; E78.5 Hyperlipidemia, unspecified; I48.91 Unspecified atrial fibrillation; F41.9 Anxiety disorder, unspecified; Z87.891 Personal history of nicotine dependence; Z79.01 Long term (current) use of anticoagulants; Z79.82 Long term (current) use of aspirin
CPT/HCPCS: 36415; 80053; 81003; 83735; 84484; 85025; 93005; 99284

== ENCOUNTER → 2021-07-10 | Outpatient (CLI) | payer MEDICARE ==
--- NOTE | 2021-07-10 15:18 | US ---
EXAMINATION TYPE: US carotid duplex BILAT DATE OF EXAM: 07/10/2021 COMPARISON: NONE CLINICAL HISTORY: I73.9 Peripheral vascular disease, unspecified. A-fib, PVD, dizziness EXAM MEASUREMENTS: RIGHT: Peak Systolic Velocity (PSV) cm/sec ----- Right CCA: 69.5 ----- Right ICA: 158.9 ----- Right ECA: 127.2 ICA/CCA ratio: 2.3 RIGHT: End Diastole cm/sec ----- Right CCA: 15.4 ----- Right ICA: 15.0 ----- Right ECA: 14.6 LEFT: Peak Systolic Velocity (PSV) cm/sec ----- Left CCA: 99.3 ----- Left ICA: 129.8 ----- Left ECA: 158.8 ICA/CCA ratio: 1.3 LEFT: End Diastole cm/sec ----- Left CCA: 21.2 ----- Left ICA: 37.9 ----- Left ECA: 15.0 VERTEBRALS (direction of flow): Right Vertebral: Antegrade Left Vertebral: Antegrade Rhythm: Normal Bilateral heterogeneous plaque with highest velocities noticed on right mid ICA IMPRESSION: No evidence for hemodynamically significant stenosis. Criteria for Assigning % of Stenosis / Diameter reduction (Estimation based on the indirect measurements of the internal carotid artery velocities (ICA PSV). 1. Normal (no stenosis)=ICA PSV < 125 cm/s: ratio < 2.0: ICA EDV<40 cm/s. 2. Less than 50% stenosis=ICA PSV < 125 cm/s: ratio < 2.0: ICA EDV<40 cm/s. 3. 50 to 69% stenosis=ICA PSV of 125 to 230 cm/s: ration 2.0 ? 4.0: ICA EDV 40-100 cm/s. 4. Greater than 70% stenosis to near occlusion= ICA PSV > 230 cm/s: ratio > 4.0: ICA EDV > 100 cm/s. 5. Near occlusion= ICA PSV velocities may be low or undetectable: variable ratio and ICA EDV. 6. Total occlusion=unable to detect flow.
== END | disposition home or self-care (01) ==
LOC: RADUSWWP 14:31
PROVIDERS: ATTEND Internal Medicine Cardiovascular Disease
DX: I73.9 Peripheral vascular disease, unspecified (principal); I48.91 Unspecified atrial fibrillation
CPT/HCPCS: 93880

== ENCOUNTER → 2022-01-16 | Outpatient (CLI) | payer MEDICARE | END | disposition home or self-care (01) | LOC: RADXRMAIN 12:39 | PROVIDERS: ATTEND Family Medicine | DX: Z53.9 Procedure and treatment not carried out, unspecified reason (principal) ==

== ENCOUNTER → 2022-01-17 | Outpatient (CLI) | payer MEDICARE ==
--- NOTE | 2022-01-17 11:14 | XR ---
Facial bones HISTORY: Right TMJ pain, M 26.601 3 views of the facial bones Mastoid air cells are well aerated. Bone mineralization is maintained. The orbits show symmetric appe arance. No air-fluid level in the paranasal sinuses to suggest acute sinusitis. Temporomandibular berlin nts are thought to be intact but are superimposed on the lateral exam. IMPRESSION: No abnormality is evident as described. There are limitations to the exam.
== END | disposition home or self-care (01) ==
LOC: RADXRMAIN 09:53
PROVIDERS: ATTEND Family Medicine
DX: M26.601 Right temporomandibular joint disorder, unspecified (principal)
CPT/HCPCS: 70150

== ENCOUNTER → 2022-08-12 | Outpatient (CLI) | payer MEDICARE ==
--- NOTE | 2022-08-13 10:59 | US ---
EXAMINATION TYPE: US arterial LE single level DATE OF EXAM: 08/12/2022 1:29 PM CLINICAL HISTORY: I73.9. PAD History of: Smoker: Previous Hypertension: Yes Diabetic: No Hyperlipidemia: Yes TIA/CVA: No Previous Vascular Surgery: Angioplasty PA: No Vascular Ulcers: No Claudication: Yes Gangrene: No Doppler Waveforms: Right: Monophasic Left: Monophasic Right Brachial Pressure: 106 Left Brachial Pressure: 102 Ankle-Brachial Indices: Right: 0.54 Left: 1.0 Toe Brachial Indices: Right: 0.23 Left: 0.38 IMPRESSION: Diminished right-sided KIT and bilateral TBI's and loss of phasicity is consistent with bilateral peripheral arterial disease. At least moderate peripheral arterial disease in the right low er extremity and foot and mild peripheral arterial disease in the left foot is present. Further domingo p and follow-up is advised.
== END | disposition home or self-care (01) ==
LOC: RADUSWWP 12:43
PROVIDERS: ATTEND Podiatrist Foot & Ankle Surgery
DX: I73.9 Peripheral vascular disease, unspecified (principal); E78.5 Hyperlipidemia, unspecified; I10 Essential (primary) hypertension
CPT/HCPCS: 93922

== ENCOUNTER → 2024-12-01 | Outpatient (CLI) | payer MEDICARE ==
--- NOTE | 2024-12-01 11:05 | BD ---
EXAMINATION TYPE: Axial Bone Density DATE OF EXAM: 12/01/2024 CLINICAL HISTORY: 78 years old Female. ICD-10 CODE: M8580 OSTEOPENIA , Additional History: Height: 64.1 Weight: 164 FRAX RISK QUESTIONS: Family History (Parent hip fracture): yes Glucocorticoids (More than 3mos): yes, asthma (Ex: prednisone, prednisolone, methylprednisolone, dexamethasone, and hydrocortisone). History of Fracture in Adulthood: yes 3. Menopause before 45: no, at 50 RISK FACTORS HISTORY OF: hx of ankle fx and hands/fingers, osteoarthritis MEDICATIONS: bp meds, reflux, cholesterol, vit d, calcium, Osteoporosis Medications: yes, fosamax, in the past for a very long time, hrt for about 15 yrs EXAM MEASUREMENTS: Bone mineral densitometry was performed using the [employer] System. Bone mineral density as measured about the Lumbar spine is: ----- L1-L4(G/cm2): 0.969 T Score Values are as follows: ----- L1: -2.8 ----- L2: -2.4 ----- L3: -0.9 ----- L4: -1.4 ----- L1-L4: -1.8 Z Score Values are as follows: ----- L1: -1.4 ----- L2: -1.0 ----- L3: 0.6 ----- L4: 0.1 ----- L1-L4: -0.3 Bone mineral density has: Decreased -4.5% since study of: 06.13.2020 Bone mineral density about the R hip (g/cm2): 0.712 Bone mineral density about the L hip (g/cm2): 0.868 T Score values are as follows: -----R Neck: -2.5 -----L Neck: -2.0 -----R Total: -2.3 -----L Total: -1.1 Z Score values are as follows: -----R Neck: -0.7 -----L Neck: -0.2 -----R Total: -0.7 -----L Total: 0.5 Bone mineral density has: Decreased -1.9% since study of: 06.13.2020 FRAX%s: The graph provided illustrates a 59.6% chance for a major osteoporotic fx and a 44.9% chance for the hips probability for fx in 10 years time. IMPRESSION: Osteopenia (T Score between -2.5 and -1). There is slightly increased risk of fracture and the patient may be considered for treatment. Re-Screen 2-5 years. NOTE: T-SCORE=SD OF THE YOUNG ADULT MEAN. [facility], , 12/01/2024 11:02 AM
[2024-12-01 11:07] LABS: Bilirubin,Urine Negative (Negative); Blood,Urine Negative (Negative); Color,Urine Colorless; Glucose,Urine (UA) Negative (Negative); Ketones,Urine Negative (Negative); Leukocyte Esterase,Urine Negative (Negative); Nitrite,Urine Negative (Negative); PH, Urine 6.5 (5.0-8.0); Protein,Urine Negative (Negative); Specific Gravity,Urine 1.006 (1.001-1.035); Urobilinogen,Urine <2.0 mg/dL (<2.0)
== END | disposition home or self-care (01) ==
LOC: RADBDWWP 09:52
PROVIDERS: ATTEND Family Medicine
DX: M85.89 Other specified disorders of bone density and structure, multiple sites (principal); R30.0 Dysuria
CPT/HCPCS: 77080; 81003